=== PATIENT | female | born 1975 | race Two or more races ===

== ENCOUNTER 2023-02-01 11:44 | Emergency (ER) | payer OTHER ==
[~2023-02-01] VITALS: Ht 175.3 cm; Wt 67.0 kg
[2023-02-01 14:10] VITALS: BP 100/59; PULSE 80; RESP 16; TEMP 97.9; O2SAT 98
[2023-02-01 14:39] LABS: Basophils # (auto) 0 10 ^3/uL (0-0.2); Basophils % (auto) 0.4 % (0.0-2.0); Eosinophils # (auto) 0 10 ^3/uL (0-0.8); Eosinophils % (auto) 0.4 % (0.0-7.0); Hemoglobin 13.2 g/dL (12.2-16.2); Lymphocytes # (auto) 1.3 10 ^3/uL (0.4-5.4); Lymphocytes % (auto) 21.5 % (10.0-50.0); Mean Corpuscular Hemoglobin 29.8 pg (28.0-32.0); Mean Corpuscular Hgb Conc. 32.9 g/dL (32.0-36.0); Mean Corpuscular Volume 90.6 fL (80.0-100.0); Monocytes # (auto) 0.4 10 ^3/uL (0-1.3); Monocytes % (auto) 5.8 % (0.0-12.0); Neutrophils # (auto) 4.5 10 ^3/uL (1.6-8.6); Neutrophils % (auto) 71.9 % (37.0-80.0); Nucleated Red Blood Cells % 0.1 %; Red Blood Cells 4.42 10^6/uL (4.0-5.20); Red Cell Distribution Width 13.5 % (11.8-14.3); White Blood Cell 6.2 10^3/uL (4.4-10.8)
[2023-02-01 14:49] LABS: Chloride 106 mmol/L (98-107); Potassium 3.6 mmol/L (3.5-5.1); Sodium 139 mmol/L (136-145)
[2023-02-01 14:50] LABS: Anion Gap 9 (5-15); Carbon Dioxide 24 mmol/L (20-30)
[2023-02-01 14:51] LABS: Calcium 9.5 mg/dL (8.7-10.4)
[2023-02-01 14:56] LABS: Glucose 101 mg/dL (74-106)
[2023-02-01 15:02] LABS: BUN/Creatinine Ratio 6.8 (10.0-20.0); Blood Urea Nitrogen < 5 mg/dL (9-23)
[2023-02-01] MEDS ORDERED: NAPR-746 PO (15:41)
[2023-02-01] MEDS ORDERED: LORA-1121 PO (15:41)
== END 2023-02-01 16:07 | disposition home or self-care (01) ==
LOC: ER 11:44
DX: D25.9 Leiomyoma of uterus, unspecified (principal); F41.9 Anxiety disorder, unspecified; Z76.0 Encounter for issue of repeat prescription
CPT/HCPCS: 36415; 76830; 76856; 80048; 81025; 85025